=== PATIENT | male | born 2000 | race Caucasian/White ===

== ENCOUNTER 2023-05-18 00:08 | Emergency (ER) | payer BC, OTHER ==
[~2023-05-18] VITALS: Ht 177.8 cm; Wt 73.5 kg
[2023-05-18] MEDS ORDERED: FAMOTIDINE (20 MG) 20 MG TABLET PO ONE (00:30)
[2023-05-18] MEDS ORDERED: predniSONE 20 MG TABLET PO ONE (00:30)
[2023-05-18] MEDS ORDERED: PRED20TA PO (00:36)
[2023-05-18] MEDS ORDERED: FAMO-108 PO (00:36)
[2023-05-18] MEDS ORDERED: CETI-90 PO (00:36)
[2023-05-18] MEDS ORDERED: predniSONE 20 MG TABLET ONE (00:39)
[2023-05-18] MEDS ORDERED: FAMOTIDINE (20 MG) 20 MG TABLET ONE (00:39)
[2023-05-18 00:49] VITALS: BP 138/72; TEMP 97.9; O2SAT 99
== END 2023-05-18 00:49 | disposition home or self-care (01) ==
LOC: ER 00:20
DX: L29.9 Pruritus, unspecified (principal); R21 Rash and other nonspecific skin eruption; T78.49XA Other allergy, initial encounter; X58.XXXA Exposure to other specified factors, initial encounter
CPT/HCPCS: 99283; J7512